=== PATIENT | female | born 1995 | race Two or more races ===

== ENCOUNTER 2019-10-07 06:36 | Emergency (ER) | payer OTHER ==
[~2019-10-07] VITALS: Ht 162.6 cm; Wt 84.0 kg
[2019-10-07] MEDS ORDERED: MORPHINE SULFATE 4 MG/ML, 1ML IVPush PRN (07:30)
[2019-10-07] MEDS ORDERED: SODIUM CHLORIDE FLUSH 10ML SYR IVF ONE (07:30)
[2019-10-07] MEDS ORDERED: ONDANSETRON 2MG/ML, 2ML IVPush ONE (07:30)
[2019-10-07] MEDS ORDERED: MORPHINE SULFATE 4 MG/ML, 1ML ONE (07:38)
[2019-10-07] MEDS ORDERED: ONDANSETRON 2MG/ML, 2ML ONE (07:38)
[2019-10-07 08:14] LABS: BASOPHILS # (AUTO) 0.03 x10^3/uL (0-0.1); BASOPHILS % (AUTO) 0 % (0-1); EOSINOPHILS # (AUTO) 0.13 x10^3/uL (0-0.4); EOSINOPHILS % (AUTO) 2 % (1-7); LYMPHOCYTES # (AUTO) 1.74 x10^3/uL (1-3.4); LYMPHOCYTES % (AUTO) 24 % (22-44); MD NO; MEAN CORPUSCULAR HEMOGLOBIN 30.4 pg (27.0-34.8); MEAN CORPUSCULAR HGB CONC 33.5 g/dL (32.4-35.8); MEAN CORPUSCULAR VOLUME 90.8 fL (80-100); MEAN PLATELET VOLUME 11.4 fL (7.4-10.4); MONOCYTES # (AUTO) 0.47 x10^3/uL (0.2-0.8); MONOCYTES % (AUTO) 6 % (2-9); NEUTROPHILS # (AUTO) 4.95 x10^3/uL (1.8-6.8); NEUTROPHILS % (AUTO) 68 % (42-75); PLATELET COUNT 196 x10^3/uL (130-400); RED BLOOD COUNT 5.05 x10^6/uL (3.82-5.3); RED CELL DISTRIBUTION WIDTH 12.9 % (9.6-15.2)
[2019-10-07 08:16] LABS: MICROSCOPIC NOT IND
[2019-10-07 08:19] LABS: CULTURE INDICATED? NO
[2019-10-07 08:24] LABS: ALANINE AMINOTRANSFERASE 28 U/L (12-78); ALBUMIN 3.7 g/dL (3.4-5.0); ANION GAP 8 mmol/L (5-15); CALCIUM 8.4 mg/dL (8.5-10.1); CHLORIDE 106 mmol/L (98-107); CREATININE 0.71 mg/dL (0.55-1.02)
[2019-10-07 08:28] LABS: ALKALINE PHOSPHATASE 69 U/L (45-117); BILIRUBIN,TOTAL 0.7 mg/dL (0.2-1.0); TOTAL PROTEIN 7.1 g/dL (6.4-8.2)
[2019-10-07 08:46] VITALS: BP 100/55
== END 2019-10-07 09:57 | disposition home or self-care (01) ==
LOC: ED 09:51
DX: R10.2 Pelvic and perineal pain (principal); N83.202 Unspecified ovarian cyst, left side
CPT/HCPCS: 36415; 76830; 80053; 81003; 83690; 84703; 85025; 93005; 96374; 96375; 99284; J2270; J2405

== ENCOUNTER 2020-07-14 14:31 | Emergency (ER) | payer OTHER ==
[~2020-07-14] VITALS: Ht 162.6 cm; Wt 83.5 kg
--- NOTE | 2020-07-14 17:12 | NUR ---
No answer when called for vitals at 171.
--- NOTE | 2020-07-14 18:00 | NUR ---
TO ROOM FROM LOBBY. NAD.
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
--- NOTE | 2020-07-14 18:04 | NUR ---
PT NOW ALSO HAS C/O RESENDIZ W/ N/V. ALL NEURO INTACT. EYES PERRLA 3MM.
[2020-07-14 18:13] VITALS: BP 99/72
[2020-07-14] MEDS ORDERED: ACETAMINOPHEN 325 MG TABLET PO/NG ONE (18:30)
[2020-07-14] MEDS ORDERED: ONDANSETRON ODT 4 MG PO ONE (18:30)
[2020-07-14] MEDS ORDERED: ACETAMINOPHEN 500 MG TABLET ONE (18:35)
[2020-07-14] MEDS ORDERED: ONDANSETRON ODT 4 MG ONE (18:35)
--- NOTE | 2020-07-14 18:39 | NUR ---
PT CHART REVIEWED AND PLACED FOR RECHECK.
--- NOTE | 2020-07-14 19:06 | NUR ---
REPORT GIVEN TO LASHAE CASE RN.
--- NOTE | 2020-07-14 19:13 | NUR ---
REPORT RECEIVED FROM ANN ROMAN
== END 2020-07-14 20:07 | disposition home or self-care (01) ==
LOC: ED 19:47
DX: S16.1XXA Strain of muscle, fascia and tendon at neck level, initial encounter (principal); S09.90XA Unspecified injury of head, initial encounter; M54.6 Pain in thoracic spine; R11.2 Nausea with vomiting, unspecified; V49.49XA Driver injured in collision with other motor vehicles in traffic accident, initial encounter; Y93.89 Activity, other specified; Y92.410 Unspecified street and highway as the place of occurrence of the external cause; Y99.8 Other external cause status
CPT/HCPCS: 70450; 72020; 72050; 99284; Q0162